=== PATIENT | male | born 1950 | race Caucasian/White ===

== ENCOUNTER 2020-08-15 03:26 | Emergency (ER) | payer OTHER ==
[~2020-08-15] VITALS: Ht 177.8 cm; Wt 61.2 kg
[~2020-08-15 03:26] MED LIST: ADULT LOW DOSE81 MG PO; NITROSTAT0.4 MG SL
[2020-08-15] MEDS ORDERED: GABAPENTIN100 MG PO (03:43)
[2020-08-15] MEDS ORDERED: IBUPROFEN200 MG PO (03:44)
[2020-08-15 04:19] LABS: ABSOLUTE EOSINOPHILS 0.3 thou/uL (0.0-0.7); ABSOLUTE LYMPHOCYTES 1.1 thou/uL (0.8-5.3); ABSOLUTE MONOCYTES 0.8 thou/uL (0.0-1.2); ABSOLUTE NEUTROPHILS 5.2 thou/uL (1.6-8.1); BASOPHILS 0.5 %; EOSINOPHILS 3.8 %; HEMATOCRIT 35.7 % (42.0-52.0); HEMOGLOBIN 11.8 gm/dL (14.0-18.0); LYMPHOCYTES 14.9 %; MCH 30.5 pg (26.0-34.0); MCHC 33.1 g/dL (28.0-37.0); MCV 92.3 fL (80.0-100.0); MONOCYTES 10.3 %; MPV 8.1 fl. (7.2-11.1); NUCLEATED RBCS 0 /100WBC; PLATELET COUNT* 211 thou/uL (150-400); POLYS 70.5 %; RBC 3.87 mil/uL (4.50-6.00); RDW-CV 14.6 % (10.5-14.5); WBC 7.3 thou/uL (4.0-11.0)
[2020-08-15 04:30] LABS: CALCIUM 9.9 mg/dL (8.5-10.1); CREATININE 0.8 mg/dL (0.6-1.3); POTASSIUM 3.9 mmol/L (3.5-5.1)
[2020-08-15 04:34] LABS: PROTIME 10.4 Seconds (9.20-11.50)
[2020-08-15 04:45] LABS: ALBUMIN 3.2 g/dL (3.4-5.0); MAGNESIUM 1.9 mg/dL (1.8-2.4); TOTAL BILIRUBIN 0.3 mg/dL (<0.1-1.0); TOTAL PROTEIN 6.6 g/dL (6.4-8.2)
[2020-08-15 06:57] VITALS: BP 106/57
--- NOTE | 2020-08-16 17:51 | EKG ---
[place] [address] ELECTROCARDIOGRAM REPORT Name: DANILO HENDRICKS YUDELKA Room: [facility]#: [id number] Admission: 08/15/20 Attend Phys: Discharge: 08/15/20 Date of : 48 Date of Service: 08/15/20 0329 Report #: [id number] THIS REPORT FOR: //name// [facility] ED Test Date: 2020-08-15 Test Time: 03:29:13 Pat Name: DANILO HENDRICKS Department: Room: Gender: Mobile Application Engineer: : 1950 Requested By: Rajinder Rosario Order Number: [id number] MD: Oj Morton Measurements Intervals Wayne Rate: 63 P: 69 MS: 143 QRS: 58 QRSD: 107 T: 67 QT: 401 QTc: 411 Interpretive Statements Sinus rhythm Probable left ventricular hypertrophy Anterior ST elevation, probably due to LVH Baseline wander in lead(s) II,III,aVF Compared to ECG 04/24/2011 13:33:40 Left ventricular hypertrophy now present ST (T wave) deviation now present Electronically Signed On 08-16-2020 17:51:04 CDT by Oj Morton [email or web address] <ELECTRONICALLY SIGNED> By: Oj Morton MD, FACC 08/16/20 1751 8 8 Oj Morton MD, FACC /EPI
== END 2020-08-15 06:59 | disposition short-term general hospital (02) ==
LOC: M.ERS 03:26
PROVIDERS: Family Medicine
DX: I26.99 Other pulmonary embolism without acute cor pulmonale (principal); R07.89 Other chest pain; Z20.828 Contact with and (suspected) exposure to other viral communicable diseases